=== PATIENT | female | born 1945 | race Caucasian/White ===

== ENCOUNTER 2025-03-18 08:43 | Day surgery (SDC) | payer OTHER ==
[2025-03-18] MEDS ORDERED: MIDAZOLAM HCL 2 MG/2 ML SINGLE DOSE VIAL ONE (08:55)
[2025-03-18] MEDS: CYCLOPENTOLATE 2% OPHTH SOLN 2 ML BOTTLE ONE (09:05)
[2025-03-18] MEDS: PHENYLEPHRINE 2.5% OPTHALMIC DROP 2ML BOTTLE ONE (09:05)
[2025-03-18] MEDS: TROPICAMIDE 1% 3 ML EYE DROPS ONE (09:05)
[2025-03-18] MEDS: CIPROFLOXACIN 0.3% EYE DROPS 5 ML BOTTLE ONE (09:05)
[2025-03-18] MEDS ORDERED: EPINEPHrine 1:1000 P/F - 1 MG/ML AMP ONE (09:40)
[2025-03-18] MEDS ORDERED: BSS (NA/CA/MG/K) BALANCED SALT SOLUTION OPHTH SOLN 15 ML BOTTLE ONE (09:40)
[2025-03-18] MEDS ORDERED: CARBACHOL 0.01% INTRA-OCULAR 1.5 ML VIAL ONE (09:40)
[2025-03-18] MEDS ORDERED: LIDOCAINE 1% P/F 10 MG/ML VIAL ONE (09:40)
[2025-03-18 11:18] VITALS: BMI 25.8
[2025-03-18 11:31] VITALS: RESP 18; TEMP 97.1
[2025-03-18 12:03] VITALS: BP 125/66; PULSE 77
== END 2025-03-18 12:00 | disposition home or self-care (01) ==
LOC: FASU 08:43
PROVIDERS: ATTEND Ophthalmology
PROC: 08RK3JZ Replacement of Left Lens with Synthetic Substitute, Percutaneous Approach (ICD-10-PCS; principal; 2025-03-18 10:58)
DX: H26.8 Other specified cataract (principal)
CPT/HCPCS: 66984; V2632; 82010; 82962